=== PATIENT | female | born 1955 | race Caucasian/White ===

== ENCOUNTER 2022-08-14 14:09 | Emergency (ER) | payer MEDICARE, OTHER ==
[~2022-08-14] VITALS: Ht 172.7 cm; Wt 53.1 kg
[~2022-08-14 14:09] MED LIST: [UNRECOGNIZED DRUG - CODE] PO
--- NOTE | 2022-08-14 14:10 | NUR ---
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
--- NOTE | 2022-08-14 15:15 | NUR ---
X-RAY TECH AT BEDSIDE
[2022-08-14] MEDS ORDERED: TDAP [DIPH/PERTUSSIS/TET] 0.5 ML VIAL IM ONE ×2 (15:30→16:08)
[2022-08-14] MEDS ORDERED: NAPROXEN 500 MG TABLET PO SCH (15:30)
[2022-08-14] MEDS ORDERED: NAPROXEN 250 MG TABLET ONE (16:08)
[2022-08-14] MEDS ORDERED: NAPR-1164 PO (16:47)
--- NOTE | 2022-08-14 17:00 | NUR ---
Patient discharged to home in stable condition. Written and verbal after care instructions given. Patient verbalizes understanding of instruction.
[2022-08-14 18:52] VITALS: BP 115/72
== END 2022-08-14 17:00 | disposition home or self-care (01) ==
LOC: ER 14:13
DX: S52.121A Displaced fracture of head of right radius, initial encounter for closed fracture (principal); S40.011A Contusion of right shoulder, initial encounter; S00.01XA Abrasion of scalp, initial encounter; E03.9 Hypothyroidism, unspecified; Z79.899 Other long term (current) drug therapy; W07.XXXA Fall from chair, initial encounter; Y93.89 Activity, other specified; Y92.219 Unspecified school as the place of occurrence of the external cause; Y99.8 Other external cause status
CPT/HCPCS: 71100-TC; 73030-TC; 73080-TC; 90715